=== PATIENT | male | born 1960 | race Caucasian/White ===

== ENCOUNTER 2024-03-06 11:56 | Inpatient (IN) | payer MEDICARE, OTHER ==
--- NOTE | 2024-03-06 12:43 | ED ---
General Adult HPI - General Chief complaint: Shortness of Breath Stated complaint: Dizziness Time Seen by Provider: 03/06/24 12:09 Source: patient, EMS, RN notes reviewed, old records reviewed Mode of arrival: EMS Limitations: no limitations - History of Present Illness Initial comments: Is 63-year-old male who presents to the emergency department stating that he is at [facility] for the last 7 days for drinking. Patient states he got up today and he felt very dizzy he did not fall down but he did sit down hard and hit his tailbone. Patient denies any pain there currently. Patient denies hitting his head. Patient has any neck pain. Patient has numbness weakness. Patient states he has had a cough but has been dry so far. Patient states he also has been a little bit short of breath. Patient states it is quite a few sick contacts at [facility]. [facility] did send in. - Related Data Allergies Allergy/AdvReac Type Severity Reaction Status Date / Time No Known Allergies Allergy Verified 03/06/24 12:01 Review of Systems ROS Statement: Those systems with pertinent positive or pertinent negative responses have been documented in the HPI. ROS Other: All systems not noted in ROS Statement are negative. Past Medical History Past Medical History: Deep Vein Thrombosis (DVT) Past Surgical History: Cholecystectomy Smoking Status: Current every day smoker Past Alcohol Use History: Abuse, Daily, Heavy Past Drug Use History: Cocaine General Exam - General Exam Comments Initial Comments: GENERAL: Patient is well-developed and well-nourished. Patient is nontoxic and well- hydrated and is in mild distress. Normal temperature and the patient's temp was 101.3 ENT: Neck is soft and supple. No significant lymphadenopathy is noted. Oropharynx is clear. Moist mucous membranes. Neck has full range of motion without eliciting any pain. EYES: The sclera were anicteric and conjunctiva were pink and moist. Extraocular movements were intact and pupils were equal round and reactive to light. Eyelids were unremarkable. PULMONARY: Crackles in the right base CARDIOVASCULAR: There is a regular rate and rhythm without any murmurs gallops or rubs. ABDOMEN: Soft and nontender with normal bowel sounds. SKIN: Skin is clear with no lesions or rashes and otherwise unremarkable. NEUROLOGIC: Patient is alert and oriented x3. Cranial nerves II through XII are grossly intact. Motor and sensory are also intact. Normal speech, volume and content. Symmetrical smile. MUSCULOSKELETAL: Normal extremities with adequate strength and full range of motion. LYMPHATICS: No significant lymphadenopathy is noted PSYCHIATRIC: Normal psychiatric evaluation. Limitations: no limitations Course Vital Signs 03/06/24 03/06/24 03/06/24 12:01 12:27 14:18 Temperature 99.6 F 101.2 F H 98.8 F Pulse Rate 89 Respiratory 20 Rate Blood Pressure 98/58 O2 Sat by Pulse 91 L Oximetry Medical Decision Making - Medical Decision Making I interpreted the EKG myself. EKG shows a sinus rhythm at 65 bpm TN interval 158 QRS is 86 QT interval 387 QTc is 399. Patient's EKG shows no ST segment elevation or depression. Was pt. sent in by a medical professional or institution (, PA, COLLECTIONS OFFICER, urgent care, hospital, or usp...) When possible be specific @ -No Did you speak to anyone other than the patient for history (EMS, parent, family, police, friend...)? What history was obtained from this source @ -No Did you review nursing and triage notes (agree or disagree)? Why? @ -I reviewed and agree with nursing and triage notes Were old charts reviewed (outside hosp., previous admission, EMS record, old EKG, old radiological studies, urgent care reports/EKG's, usp records)? Report findings @ -No old charts were reviewed Differential Diagnosis? @ -Differential Fever: Pneumonia, viral URI, endocarditis, myocarditis, pericarditis, otitis, sinusitis, peritonsillar Abscess, retropharyngeal Abscess, epiglottitis, peritonitis, appendicitis, Em cystitis, diverticulitis, hepatitis, colitis, UTI, PID, TOA, pyelonephritis, prostatitis, epididymitis, meningitis, encephalitis, pulmonary embolism, CVA, thyroid storm, pancreatitis, adrenal cr sebastien, cavernous sinus thrombosis, this is not meant to be an all-inclusive list. EKG interpreted by me (3pts min.). @ -As above X-rays interpreted by me (1pt min.). @ -Chest x-ray shows bilateral infiltrate. CT interpreted by me (1pt min.). @ -None done U/S interpreted by me (1pt. min.). @ -None done What testing was considered but not performed or refused? (CT, X-rays, U/S, labs)? Why? @ -None What meds were considered but not given or refused? Why? @ -None Did you discuss the management of the patient with other professionals (professionals i.e. , PA, COLLECTIONS OFFICER, lab, RT, psych nurse, social services coordinator, hydrologic engineer, teacher, surface to air weapons officer, social work case manager)? Give summary @ -Spoke with [facility] emergency [facility] physicians agreed to admit the patient admit the patient remaining orders Was smoking cessation discussed for >3mins.? @ -No Was critical care preformed (if so, how long)? @ -No Were there social determinants of health that impacted care today? How? (Homelessness, low income, unemployed, alcoholism, drug addiction, transportation, low edu. Level, literacy, decrease access to med. care, skilled nursing, rehab)? @ -No Was there de-escalation of care discussed even if they declined (Discuss DNR or withdrawal of care, Hospice)? DNR status @ -No What co-morbidities impacted this encounter? (DM, HTN, Smoking, COPD, CAD, Ca ncer, CVA, ARF, Chemo, Hep., AIDS, mental health diagnosis, sleep apnea, morbid obesity)? @ -None Was patient admitted / discharged? Hospital course, mention meds given and route, prescriptions, significant lab abnormalities, going to OR and other pertinent info. @ -Patient was given antibiotics on arrival because of his fever and suspected pneumonia. X-ray confirmed that. Patient will be admitted to [facility] emergency department physicians. Undiagnosed new problem with uncertain prognosis? @ -No Drug Therapy requiring intensive monitoring for toxicity (Heparin, Nitro, Insulin, Cardizem)? @ -No Were any procedures done? @ -No Diagnosis/symptom? @ -pneumonia Acute, or Chronic, or Acute on Chronic? @ -Acute Uncomplicated (without systemic symptoms) or Complicated (systemic symptoms)? @ -Complicated Side effects of treatment? @ -No Exacerbation, Progression, or Severe Exacerbation? @ -No Poses a threat to life or bodily function? How? (Chest pain, USA, SC, pneumonia, PE, COPD, DKA, ARF, appy, cholecystitis, CVA, Diverticulitis, Homicidal, Suicidal, threat to staff... and all critical care pts) @ -Yes this can lead to sepsis and endorgan dysfunction - Lab Data Result diagrams: 03/06/24 13:04 03/06/24 13:04 Lab Results 03/06/24 03/06/24 03/06/24 Range/Units 13:04 13:04 13:04 WBC 16.6 H (3.8-10.6) k/uL RBC 4.18 L (4.30-5.90) m/uL Hgb 11.8 L (13.0-17.5) gm/dL Hct 37.7 L (39.0-53.0) % MCV 90.2 (80.0-100.0) fL MCH 28.3 (25.0-35.0) pg MCHC 31.4 (31.0-37.0) g/dL RDW 16.9 H (11.5-15.5) % Plt Count 206 (150-450) k/uL MPV 8.6 Neutrophils % 81 % Lymphocytes % 8 % Monocytes % 7 % Eosinophils % 0 % Basophils % 1 % Neutrophils # 13.4 H (1.3-7.7) k/uL Lymphocytes # 1.3 (1.0-4.8) k/uL Monocytes # 1.1 H (0-1.0) k/uL Eosinophils # 0.0 (0-0.7) k/uL Basophils # 0.1 (0-0.2) k/uL Hypochromasia Slight Anisocytosis Slight Sodium 135 L (137-145) mmol/L Potassium 5.5 H (3.5-5.1) mmol/L Chloride 106 (98-107) mmol/L Carbon Dioxide 27 (22-30) mmol/L Anion Gap 2 mmol/L BUN 31 H (9-20) mg/dL Creatinine 1.45 H (0.66-1.25) mg/dL Est GFR (CKD-EPI)AfAm 58 (>60 ml/min/1.73 sqM) Est GFR (CKD-EPI)NonAf 50 (>60 ml/min/1.73 sqM) Glucose 92 (74-99) mg/dL Plasma Lactic Acid Leonel 0.8 (0.7-2.0) mmol/L Calcium 8.5 (8.4-10.2) mg/dL Total Bilirubin 0.7 (0.2-1.3) mg/dL AST 22 (17-59) U/L ALT 17 (4-49) U/L Alkaline Phosphatase 45 (38-126) U/L Total Protein 6.0 L (6.3-8.2) g/dL Albumin 3.5 (3.5-5.0) g/dL Influenza Type A (PCR) (Not Detectd) Influenza Type B (PCR) (Not Detectd) RSV (PCR) (Not Detectd) SARS-CoV-2 (PCR) (Not Detectd) 03/06/24 Range/Units 13:04 WBC (3.8-10.6) k/uL RBC (4.30-5.90) m/uL Hgb (13.0-17.5) gm/dL Hct (39.0-53.0) % MCV (80.0-100.0) fL MCH (25.0-35.0) pg MCHC (31.0-37.0) g/dL RDW (11.5-15.5) % Plt Count (150-450) k/uL MPV Neutrophils % % Lymphocytes % % Monocytes % % Eosinophils % % Basophils % % Neutrophils # (1.3-7.7) k/uL Lymphocytes # (1.0-4.8) k/uL Monocytes # (0-1.0) k/uL Eosinophils # (0-0.7) k/uL Basophils # (0-0.2) k/uL Hypochromasia Anisocytosis Sodium (137-145) mmol/L Potassium (3.5-5.1) mmol/L Chloride (98-107) mmol/L Carbon Dioxide (22-30) mmol/L Anion Gap mmol/L BUN (9-20) mg/dL Creatinine (0.66-1.25) mg/dL Est GFR (CKD-EPI)AfAm (>60 ml/min/1.73 sqM) Est GFR (CKD-EPI)NonAf (>60 ml/min/1.73 sqM) Glucose (74-99) mg/dL Plasma Lactic Acid Leonel (0.7-2.0) mmol/L Calcium (8.4-10.2) mg/dL Total Bilirubin (0.2-1.3) mg/dL AST (17-59) U/L ALT (4-49) U/L Alkaline Phosphatase (38-126) U/L Total Protein (6.3-8.2) g/dL Albumin (3.5-5.0) g/dL Influenza Type A (PCR) Not Detected (Not Detectd) Influenza Type B (PCR) Not Detected (Not Detectd) RSV (PCR) Not Detected (Not Detectd) SARS-CoV-2 (PCR) Not Detected (Not Detectd) Disposition Clinical Impression: Pneumonia Disposition: ADMITTED IP TO THIS HOSP Referrals: Nonstaff,Physician [Primary Care Provider] - 1-2 days Time of Disposition: 15:27
[2024-03-06] MEDS: ACETAMINOPHEN TAB 500 MG TAB PO STA (13:10)
[2024-03-06] MEDS: SODIUM CHLORIDE 0.9% 500 ML 500 ML IV SCH (13:10)
[2024-03-06] MEDS: cefTRIAXone IN SWFI 1,000 MG/10 ML SYRINGE IVP STA (13:11)
[2024-03-06] MEDS: IBUPROFEN 600 MG TAB PO STA (13:11)
[2024-03-06 13:22] LABS: Anisocytosis Slight; Basophils # (A) 0.1 k/uL (0-0.2); Basophils % (A) 1 %; Eosinophils % (A) 0 %; HCT 37.7 % (39.0-53.0); HGB 11.8 gm/dL (13.0-17.5); Hypochromasia Slight; Lymphocytes # (A) 1.3 k/uL (1.0-4.8); Lymphocytes % (A) 8 %; MCH 28.3 pg (25.0-35.0); MCHC 31.4 g/dL (31.0-37.0); MCV 90.2 fL (80.0-100.0); Mean Platelet Volume 8.6; Monocytes # (A) 1.1 k/uL (0-1.0); Monocytes % (A) 7 %; Neutrophils # (A) 13.4 k/uL (1.3-7.7); Neutrophils % (A) 81 %; Platelet Count 206 k/uL (150-450); RBC 4.18 m/uL (4.30-5.90); RDW 16.9 % (11.5-15.5); WBC 16.6 k/uL (3.8-10.6)
--- NOTE | 2024-03-06 13:24 | XR ---
EXAMINATION TYPE: XR chest 2V DATE OF EXAM: 03/06/2024 1:19 PM COMPARISON: Chest radiographs from TECHNIQUE: XR chest 2V Frontal and lateral views of the chest. CLINICAL INDICATION:Male, 63 years old with history of Fever; FINDINGS: Lungs/Pleura: No pleural effusion or pneumothorax. Patchy bilateral perihilar opacities. Heart/mediastinum: Cardiomediastinal silhouette is prominent in size. Musculoskeletal: No acute osseous pathology. IMPRESSION: Patchy bilateral perihilar opacities which may represent pneumonia and/or pulmonary vascular congesti on. [facility], , 03/06/2024 1:22 PM
[2024-03-06 13:51] LABS: ALT 17 U/L (4-49); AST 22 U/L (17-59); African American GFR (CKD) 58 (>60 ml/min/1.73 sqM); Albumin 3.5 g/dL (3.5-5.0); Alkaline Phosphatase 45 U/L (38-126); Anion Gap 2 mmol/L; Blood Urea Nitrogen 31 mg/dL (9-20); Calcium 8.5 mg/dL (8.4-10.2); Carbon Dioxide 27 mmol/L (22-30); Chloride 106 mmol/L (98-107); Glucose 92 mg/dL (74-99); Non-African American GFR(CKD) 50 (>60 ml/min/1.73 sqM); Potassium 5.5 mmol/L (3.5-5.1); Sodium 135 mmol/L (137-145); Total Bilirubin 0.7 mg/dL (0.2-1.3)
[2024-03-06] MEDS ORDERED: PNEUMONIA PROTOCOL UTILIZED 1 EACH MISC PO PRN (15:28)
[2024-03-06] MEDS ORDERED: ALBUTEROL NEBULIZED 2.5 MG/3 ML INHALATION PRN ×2 (15:28→16:30)
[2024-03-06] MEDS ORDERED: CALCIUM CARB-VIT D 500 MG-5 MCG TAB PO PRN (16:30)
[2024-03-06] MEDS: AZITHROMYCIN 500 MG in SODIUM CHLORIDE 0.9% 250 ML IVPB STA (16:31)
[2024-03-06] MEDS ORDERED: NALOXONE 0.4 MG/ML 1 ML VIAL IV PRN (17:24)
--- NOTE | 2024-03-06 17:27 | P.HPIM ---
History of Present Illness H&P Date: 03/06/24 Chief Complaint: Hypoxia Rafael is a 63-year-old male with past medical history of cocaine use disorder, alcohol use disorder, tobacco use and history of DVT The patient is currently at [facility]. He reports that his tentative discharge date is later in March. He reports that he had relapsed and currently suffers from cocaine use disorder, alcohol disorder and tobacco use. He reports he still use tobacco with his prior cigarette earlier today. It was noted that he was at [facility] and he had felt very dizzy. He had his vital signs checked and it was noted that he was hypoxic. It appears that he was 86% on room air. He was then transferred to the hospital for further evaluation. When he presented to hospital he was 91% on 2 L of oxygen. He was noted to be febrile with a Tmax of 101.2. Respiratory rate was 20. Chest x-ray had revealed patchy opacities bilaterally. The patient was started on ceftriaxone azithromycin was admitted for further management When speaking to the patient he does report that he does use tobacco however has not ever been formally been diagnosed with COPD. He reports he still uses tobacco. Review of Systems Constitutional: Reports as per HPI Past Medical History Past Medical History: Deep Vein Thrombosis (DVT) Past Surgical History: Cholecystectomy Smoking Status: Current every day smoker Past Alcohol Use History: Abuse, Daily, Heavy Past Drug Use History: Cocaine Medications and Allergies Home Medications Medication Instructions Recorded Confirmed Type ARIPiprazole [Abilify] 10 mg PO DAILY 03/06/24 03/06/24 History Acetaminophen Tab [Tylenol] 650 mg PO Q4H PRN 03/06/24 03/06/24 History Albuterol Nebulized [Ventolin 2.5 mg INHALATION RT-Q6H PRN 03/06/24 03/06/24 History Nebulized] Apixaban [Eliquis] 5 mg PO BID 03/06/24 03/06/24 History Atorvastatin [Lipitor] 10 mg PO HS 03/06/24 03/06/24 History Calcium Phos/D3/Magnesium/Zinc 1 tab PO TID PRN 03/06/24 03/06/24 History [[id number]-Ujvm-Vitamin D3] Chlorpheniramine Maleate 4 mg PO Q4H PRN 03/06/24 03/06/24 History [Chlor-Trimeton] DULoxetine HCL [Cymbalta] 60 mg PO BID 03/06/24 03/06/24 History Folic Acid 1 mg PO DAILY 03/06/24 03/06/24 History Loperamide [Imodium] 4 mg PO QID PRN 03/06/24 03/06/24 History Melatonin 10 mg PO HS 03/06/24 03/06/24 History Multivitamins, Thera [Multivitamin 1 tab PO DAILY 03/06/24 03/06/24 History (formulary)] Pregabalin [Lyrica] 150 mg PO TID 03/06/24 03/06/24 History Tamsulosin HCl [Flomax] 0.4 mg PO DAILY 03/06/24 03/06/24 History Thiamine [Vitamin B-1] 100 mg PO DAILY 03/06/24 03/06/24 History allopurinoL 100 mg PO DAILY 03/06/24 03/06/24 History cloNIDine HCL [Catapres] 0.1 - 0.3 mg PO Q4H PRN 03/06/24 03/06/24 History ondansetron HCL [Zofran] 8 mg PO Q6H PRN 03/06/24 03/06/24 History traZODone HCL [Desyrel] 50 - 150 mg PO HS PRN 03/06/24 03/06/24 History Allergies Allergy/AdvReac Type Severity Reaction Status Date / Time No Known Allergies Allergy Verified 03/06/24 15:22 Physical Exam Vitals: Vital Signs Temp Pulse Resp BP Pulse Ox 03/06/24 14:18 98.8 F 03/06/24 12:27 101.2 F H 03/06/24 12:01 99.6 F 89 20 98/58 91 L Intake and Output 03/06/24 03/06/24 03/06/24 06:59 14:59 22:59 Other: Weight 72.575 kg Results CBC & Chem 7: 03/06/24 13:04 03/06/24 13:04 Labs: Abnormal Lab Results - Last 24 Hours (Table) 03/06/24 03/06/24 Range/Units 13:04 13:04 WBC 16.6 H (3.8-10.6) k/uL RBC 4.18 L (4.30-5.90) m/uL Hgb 11.8 L (13.0-17.5) gm/dL Hct 37.7 L (39.0-53.0) % RDW 16.9 H (11.5-15.5) % Neutrophils # 13.4 H (1.3-7.7) k/uL Monocytes # 1.1 H (0-1.0) k/uL Sodium 135 L (137-145) mmol/L Potassium 5.5 H (3.5-5.1) mmol/L BUN 31 H (9-20) mg/dL Creatinine 1.45 H (0.66-1.25) mg/dL Total Protein 6.0 L (6.3-8.2) g/dL Assessment and Plan Assessment: #) Sepsis, POA with leukocytosis and tachycaridia 2/2 to bacterial CAP with cxr showing multifocal pna. no prior antibx usage but does have mrsa risk factors. continue iv ceftriaxone/po azithromycin. check mrsa nares. tylenol prn for fevers. check sputum cx #) Acute hypoxic respiraotry failure req nc- continue supplemental nc as tolerates #) Tobacco use- nicotine patch while inpatient. tobacco cessasation recommended #) Hyperkalemia, ?errornous. recheck K. #) Cocaine use dz- continued cocaine use cessation #) etoh use dz- continued etoh cessation. high dose thiamine #) hx of dvt- continue eliquis 5 mg bid #) mood disorder not otherwise specified- continue abilify 10 mg daily #) Neuropathy- continue lyrica 150 mg TID #) bph- continue tamsulosin 0.4 mg daily dispo: [facility], anticipate discharge 48-72 hours Time with Patient: Greater than 30
[2024-03-06] MEDS: BUMETANIDE 0.25 MG/ML 4 ML VIAL IVP STA (17:43)
[2024-03-06] MEDS: LACTATED RINGERS 1,000 ML IV ONE (18:16)
[2024-03-06] MEDS: NICOTINE 21MG/24HR PATCH TRANSDERM SCH (18:16)
[2024-03-06 18:33] LABS: Appearance,Urine Clear (Clear); Bilirubin,Urine Negative (Negative); Blood,Urine Negative (Negative); Color,Urine Colorless; Glucose,Urine (UA) Negative (Negative); Ketones,Urine Negative (Negative); Leukocyte Esterase,Urine Negative (Negative); Nitrite,Urine Negative (Negative); PH, Urine 6.5 (5.0-8.0); Protein,Urine Negative (Negative); Urobilinogen,Urine <2.0 mg/dL (<2.0)
[2024-03-06] MEDS ORDERED: ACETAMINOPHEN TAB 325 MG TAB PO PRN (19:00)
[2024-03-06] MEDS: DULoxetine HCL 60 MG CAPSULE.DR PO SCH (22:30)
[2024-03-06] MEDS: ATORVASTATIN 10 MG TAB PO SCH (22:30)
[2024-03-06] MEDS: APIXABAN 5 MG TAB PO SCH (22:30)
[2024-03-06] MEDS: PREGABALIN 75 MG CAP PO SCH (22:30)
[2024-03-06] MEDS: MELATONIN 5 MG TABLET PO SCH (22:30)
[2024-03-06] MEDS: traZODone HCL 50 MG TAB PO PRN (22:51)
[2024-03-07 05:07] LABS: Blood Urea Nitrogen 28.8 mg/dL (9.0-27.0); Calcium 7.8 mg/dL (8.7-10.3); Carbon Dioxide 22.8 mmol/L (21.6-31.8); Chloride 110 mmol/L (96-109); Glucose 88 mg/dL (70-110); Potassium 5.3 mmol/L (3.5-5.5); Sodium 140 mmol/L (135-145)
--- NOTE | 2024-03-07 07:30 | XR ---
2 view chest HISTORY: Pneumonia. COMPARISON: 03/06/2024 TECHNIQUE: PA and lateral views chest obtained. FINDINGS: The lungs are clear of consolidative, interstitial or masslike opacity. There is no pleural effusion, pleural thickening or pneumothorax. The heart, pulmonary vasculature, mediastinum and diego are within normal limits. The osseous structures and soft tissues of the thorax are intact. IMPRESSION: No significant abnormality. No acute cardiopulmonary disease. [facility], , 03/07/2024 7:28 AM
[2024-03-07] MEDS: TAMSULOSIN 0.4 MG CAP.ER.24H PO SCH (09:38)
[2024-03-07] MEDS: THIAMINE 100 MG TAB PO SCH (09:38)
[2024-03-07] MEDS: MULTIVITAMINS, THERA 1 EACH TAB PO SCH (09:38)
[2024-03-07] MEDS: ARIPiprazole 10 MG TAB PO SCH (09:38)
[2024-03-07] MEDS: FOLIC ACID 1 MG TAB PO SCH (09:38)
[2024-03-07 10:00] LABS: Basophils # (A) 0.08 X 10*3/uL (0.00-0.10); Basophils % (A) 0.7 %; Eosinophils # (A) 0.15 X 10*3/uL (0.04-0.35); Eosinophils % (A) 1.3 %; HGB 11.1 g/dL (13.0-17.0); Lymphocytes # (A) 2.04 X 10*3/uL (0.90-5.00); MCH 27.9 pg (27.0-32.0); Mean Platelet Volume 12.5 FL (9.5-12.2); Monocytes # (A) 1.45 X 10*3/uL (0.20-1.00); Monocytes % (A) 12.1 %; NRBC Per 100 WBC 0 X 10*3/uL (0.00-0.01); Neutrophils # (A) 8.23 X 10*3/uL (1.80-7.70); Neutrophils % (A) 68.5 %; Platelet Count 214 X 10*3/uL (140-440); RBC 3.98 X 10*6/uL (4.40-5.60)
[2024-03-07 10:26] LABS: BUN/Creat Ratio 19.86 Ratio (12.00-20.00); Blood Urea Nitrogen 27.8 mg/dL (9.0-27.0); Calcium 8.1 mg/dL (8.7-10.3); Carbon Dioxide 21.4 mmol/L (21.6-31.8); Chloride 110 mmol/L (96-109); Glucose 83 mg/dL (70-110); Potassium 5.4 mmol/L (3.5-5.5); Sodium 142 mmol/L (135-145)
[2024-03-07] MEDS: AZITHROMYCIN 500 MG TAB PO SCH (10:30)
[2024-03-07] MEDS ORDERED: IPRATROPIUM-ALBUTEROL 3 ML NEB INHALATION PRN (11:53)
--- NOTE | 2024-03-07 11:55 | P.PN ---
Subjective Progress Note Date: 03/07/24 Principal diagnosis: States 63-year-old male who presented from [place] with hypoxia. His chest x-ray revealed patchy opacities bilaterally and he was treated for bacterial co mmunity-acquired pneumonia. 03/07: The patient reported rigors overnight. No fevers were documented or reported. His leukocytosis has improved and his white blood cell count is 12.0 currently. Objective - Vital Signs Vital signs: Vital Signs Temp 97.8 F 03/07/24 07:12 Pulse 66 03/07/24 09:40 Resp 19 03/07/24 09:40 BP 121/79 03/07/24 07:12 Pulse Ox 96 03/07/24 09:40 FiO2 Intake & Output 03/06/24 03/07/24 03/07/24 18:59 06:59 18:59 Intake Total 1557 Balance 1557 Weight 72.575 kg 72.575 kg Intake: Oral 1557 Other: Voiding Method Toilet Toilet # Voids 2 2 - Exam General: Male, appears stated age, pleasant Derm: warm, dry Head: atraumatic, normocephalic, symmetric Eyes: EOMI, no lid lag, anicteric sclera, pupils equal round reactive to light ENT: Nose and ears atraumatic, no thrush, no pharyngeal erythema Neck: No thyromegaly, no cervical lymphadenopathy, trachea midline, supple Mouth: no lip lesion, mucus membranes moist Cardiovascular: S1S2 reg, no murmur, positive posterior tibial pulse bilateral, no edema, capillary refill less than 2 seconds Lungs: clear to ascultation bilateral on supplemental oxygen Abdominal: soft, nontender to palpation, no guarding, no appreciable organomegaly, normal bowel sounds Ext: no gross muscle atrophy, muscle strength muscle strength 5 out of 5 in all 4 extremities, no contractures Neuro: Moving all extremity spontaneously Psych: Calm and cooperative - Labs CBC & Chem 7: 03/07/24 03:59 03/07/24 03:59 Labs: Abnormal Lab Results - Last 24 Hours (Table) 03/06/24 03/06/24 03/06/24 Range/Units 13:04 13:04 16:44 WBC 16.6 H (3.8-10.6) k/uL RBC 4.18 L (4.30-5.90) m/uL Hgb 11.8 L (13.0-17.5) gm/dL Hct 37.7 L (39.0-53.0) % MCHC (32.0-37.0) g/dL RDW 16.9 H (11.5-15.5) % MPV (9.5-12.2) FL Immature Gran # (0.00-0.04) X 10*3/uL Neutrophils # 13.4 H (1.3-7.7) k/uL Monocytes # 1.1 H (0-1.0) k/uL Sodium 135 L (137-145) mmol/L Potassium 5.5 H (3.5-5.1) mmol/L Chloride 110 H (96-109) mmol/L Carbon Dioxide (21.6-31.8) mmol/L BUN 31 H 28.8 H (9-20) mg/dL Creatinine 1.45 H (0.66-1.25) mg/dL Est GFR (CKD-EPI) 51 L (>=60) Calcium 7.8 L (8.7-10.3) mg/dL C-Reactive Protein 4.70 H (0.00-0.80) mg/dL Total Protein 6.0 L (6.3-8.2) g/dL 03/07/24 03/07/24 Range/Units 03:59 03:59 WBC 12.00 H (3.8-10.6) k/uL RBC 3.98 L (4.30-5.90) m/uL Hgb 11.1 L (13.0-17.5) gm/dL Hct 37.0 L (39.0-53.0) % MCHC 30.0 L (32.0-37.0) g/dL RDW 18.0 H (11.5-15.5) % MPV 12.5 H (9.5-12.2) FL Immature Gran # 0.05 H (0.00-0.04) X 10*3/uL Neutrophils # 8.23 H (1.3-7.7) k/uL Monocytes # 1.45 H (0-1.0) k/uL Sodium (137-145) mmol/L Potassium (3.5-5.1) mmol/L Chloride 110 H (96-109) mmol/L Carbon Dioxide 21.4 L (21.6-31.8) mmol/L BUN 27.8 H (9-20) mg/dL Creatinine (0.66-1.25) mg/dL Est GFR (CKD-EPI) 56 L (>=60) Calcium 8.1 L (8.7-10.3) mg/dL C-Reactive Protein (0.00-0.80) mg/dL Total Protein (6.3-8.2) g/dL Assessment and Plan Assessment: #) Sepsis, POA with leukocytosis and tachycaridia 2/2 to bacterial CAP with cxr showing multifocal pna. no prior antibx usage but does have mrsa risk factors. Awaiting MRSA nares. Continue IV ceftriaxone and azithromycin. Awaiting sputum culture results. #) Acute hypoxic respiraotry failure req nc- continue supplemental nc as tolerates and wean down as tolerates #) Tobacco use- nicotine patch while inpatient. tobacco cessasation recommended #) Hyperkalemia, creatinine is noted to be 1.4 with no prior kidney function on file. Provide another bolus of IV fluid and provide a dose of Lokelma. Recheck BMP tomorrow morning #) Crack Cocaine use dz- continued cocaine use cessation. Reported that he smoked crack cocaine previously #) etoh use dz- continued etoh cessation. high dose thiamine #) hx of dvt- continue eliquis 5 mg bid #) mood disorder not otherwise specified- continue abilify 10 mg daily #) Neuropathy- continue lyrica 150 mg TID #) bph- continue tamsulosin 0.4 mg daily dispo: [facility], anticipate discharge on March 09 ability to be weaned off supplemental oxygen and stable hemodynamics Time with Patient: Greater than 30
[2024-03-07] MEDS: LACTATED RINGERS 1,000 ML IV ONE (14:56)
[2024-03-07] MEDS: SODIUM ZIRCONIUM CYCLOSILICATE 10 GM PACKET PO ONE (14:56)
--- NOTE | 2024-03-08 09:57 | P.PN ---
Subjective Progress Note Date: 03/07/24 Principal diagnosis: States 63-year-old male who presented from [place] with hypoxia. His chest x-ray revealed patchy opacities bilaterally and he was treated for bacterial community-acquired pneumonia. 03/07: The patient reported rigors overnight. No fevers were documented or reported. His leukocytosis has improved and his white blood cell count is 12.0 currently. - Exam General: Male, appears stated age, pleasant Derm: warm, dry Head: atraumatic, normocephalic, symmetric Eyes: EOMI, no lid lag, anicteric sclera, pupils equal round reactive to light ENT: Nose and ears atraumatic, no thrush, no pharyngeal erythema Neck: No thyromegaly, no cervical lymphadenopathy, trachea midline, supple Mouth: no lip lesion, mucus membranes moist Cardiovascular: S1S2 reg, no murmur, positive posterior tibial pulse bilateral, no edema, capillary refill less than 2 seconds Lungs: clear to ascultation bilateral on supplemental oxygen Abdominal: soft, nontender to palpation, no guarding, no appreciable organomegaly, normal bowel sounds Ext: no gross muscle atrophy, muscle strength muscle strength 5 out of 5 in all 4 extremities, no contractures Neuro: Moving all extremity spontaneously Psych: Calm and cooperative Objective - Vital Signs Vital signs: Vital Signs Temp 98.1 F 03/08/24 08:05 Pulse 58 L 03/08/24 08:05 Resp 18 03/08/24 08:05 BP 135/84 03/08/24 08:05 Pulse Ox 95 03/08/24 08:05 FiO2 Intake & Output 03/07/24 03/08/24 03/08/24 18:59 06:59 18:59 Intake Total 1797 Balance 1797 Intake: Oral 1797 Other: Voiding Method Toilet Toilet # Voids 3 2 - Labs CBC & Chem 7: 03/07/24 03:59 03/07/24 03:59 Labs: Abnormal Lab Results - Last 24 Hours (Table) 03/07/24 03/07/24 Range/Units 03:59 03:59 WBC 12.00 H (4.50-10.00) X 10*3/uL RBC 3.98 L (4.40-5.60) X 10*6/uL Hgb 11.1 L (13.0-17.0) g/dL Hct 37.0 L (39.6-50.0) % MCHC 30.0 L (32.0-37.0) g/dL RDW 18.0 H (11.5-14.5) % MPV 12.5 H (9.5-12.2) FL Immature Gran # 0.05 H (0.00-0.04) X 10*3/uL Neutrophils # 8.23 H (1.80-7.70) X 10*3/uL Monocytes # 1.45 H (0.20-1.00) X 10*3/uL Chloride 110 H (96-109) mmol/L Carbon Dioxide 21.4 L (21.6-31.8) mmol/L BUN 27.8 H (9.0-27.0) mg/dL Est GFR (CKD-EPI) 56 L (>=60) Calcium 8.1 L (8.7-10.3) mg/dL Microbiology - Last 24 Hours (Table) 03/06/24 18:22 Gram Stain - Preliminary Sputum 03/06/24 13:00 Blood Culture - Preliminary Blood 03/06/24 12:45 Blood Culture - Preliminary Blood Assessment and Plan Plan: #) Sepsis, POA with leukocytosis and tachycaridia 2/2 to bacterial CAP with cxr showing multifocal pna. no prior antibx usage but does have mrsa risk factors. Awaiting MRSA nares. Continue IV ceftriaxone and azithromycin. Awaiting sputum culture results. #) Acute hypoxic respiraotry failure req nc- continue supplemental nc as tolerates and wean down as tolerates #) Tobacco use- nicotine patch while inpatient. tobacco cessasation recommended #) Hyperkalemia, creatinine is noted to be 1.4 with no prior kidney function on file. Provide another bolus of IV fluid and provide a dose of Lokelma. Recheck BMP tomorrow morning #) Crack Cocaine use dz- continued cocaine use cessation. Reported that he smoked crack cocaine previously #) etoh use dz- continued etoh cessation. high dose thiamine #) hx of dvt- continue eliquis 5 mg bid #) mood disorder not otherwise specified- continue abilify 10 mg daily #) Neuropathy- continue lyrica 150 mg TID #) bph- continue tamsulosin 0.4 mg daily 03/08 Patient seen and examined at bedside No acute overnight events Patient seems to be doing well overall however he states that he used to get breathing treatments in the past which have helped him when he has had exacerb ations of COPD/previous pneumonias Will add DuoNebs every 4 hours as needed wheezing Wean oxygen as tolerated Continue Rocephin azithromycin Plan to switch to oral regimen upon discharge Continue to monitor for next 24 to 48 hours Will need walking O2 test prior to discharge to assess need for oxygen dispo: jacques, anticipate discharge on March 09 ability to be weaned off supplemental oxygen and stable hemodynamics Time with Patient: Greater than 30
[2024-03-08 10:57] LABS: ALT 14 U/L (10-49); AST 19 U/L (14-35); Albumin 3.4 g/dL (3.8-4.9); Albumin/Globulin Ratio 1.62 Ratio (1.60-3.17); Alkaline Phosphatase 46 U/L (41-126); BUN/Creat Ratio 18.08 Ratio (12.00-20.00); Blood Urea Nitrogen 21.7 mg/dL (9.0-27.0); Calcium 8.4 mg/dL (8.7-10.3); Carbon Dioxide 24.4 mmol/L (21.6-31.8); Chloride 107 mmol/L (96-109); Globulin 2.1 g/dL (1.6-3.3); Glucose 85 mg/dL (70-110); Sodium 139 mmol/L (135-145); Total Bilirubin 0.3 mg/dL (0.3-1.2); Total Protein 5.5 g/dL (6.2-8.2)
[2024-03-08 16:00] LABS: Basophils % (A) 1.2 %; Eosinophils # (A) 0.22 X 10*3/uL (0.04-0.35); Eosinophils % (A) 2.7 %; HCT 36.9 % (39.6-50.0); HGB 11.6 g/dL (13.0-17.0); Lymphocytes # (A) 1.78 X 10*3/uL (0.90-5.00); Lymphocytes % (A) 22.1 %; MCH 28.3 pg (27.0-32.0); MCHC 31.4 g/dL (32.0-37.0); Mean Platelet Volume 12.2 FL (9.5-12.2); Monocytes # (A) 1.17 X 10*3/uL (0.20-1.00); Monocytes % (A) 14.5 %; NRBC Per 100 WBC 0 X 10*3/uL (0.00-0.01); Neutrophils # (A) 4.79 X 10*3/uL (1.80-7.70); Neutrophils % (A) 59.4 %; Platelet Count 222 X 10*3/uL (140-440); RDW 17.8 % (11.5-14.5); WBC 8.07 X 10*3/uL (4.50-10.00)
[2024-03-09 07:52] VITALS: TEMP 98
[2024-03-09 09:16] VITALS: RESP 17
[2024-03-09 09:57] LABS: African American GFR (CKD) 61 (>60 ml/min/1.73 sqM); Anion Gap 6 mmol/L; Blood Urea Nitrogen 24 mg/dL (9-20); Calcium 8.6 mg/dL (8.4-10.2); Carbon Dioxide 25 mmol/L (22-30); Chloride 107 mmol/L (98-107); Glucose 122 mg/dL (74-99); Non-African American GFR(CKD) 53 (>60 ml/min/1.73 sqM); Sodium 138 mmol/L (137-145)
--- NOTE | 2024-03-09 14:13 | P.DS ---
Providers Date of admission: 03/06/24 15:30 Attending physician: Tiago Mcmahan MD Primary care physician: Physician Nonstaff Hospital Course: Discharge Diagnosis: Sepsis secondary to community-acquired multifocal bacterial pneumonia Acute hypoxic respiratory failure secondary to above Hospital Course: 63-year-old male with past medical history of ethanol use disorder crack cocaine use disorder, history of DVT on Eliquis, mood disorder, neuropathy, BPH, tobacco use disorder, who presented from [facility] with hypoxia, chest x-ray showed patchy bilateral opacities and he was admitted for treatment of bacterial community-acquired pneumonia. Patient initially required supplemental oxygen and was successfully weaned off, he is walking pulse ox was 95%, patient is discharged back to [facility] on Augmentin and azithromycin to complete 7 days of treatment. Patient seen and examined at bedside. He feels back at his baseline, ready to be discharged, he is Is significantly better Vital signs reviewed and stable. General: [nontoxic], [no distress], [appears at stated age] Derm: [warm], [dry] Head: [atraumatic], [normocephalic], [symmetric] Eyes: [EOMI], [no lid lag], [anicteric sclera] Mouth: [no lip lesion], [mucus membranes moist] Cardiovascular: [S1S2 reg], [no murmur] Lungs: [CTA bilateral], [no rhonchi, no rales] , [no accessory muscle use] Abdominal: [soft], [ nontender to palpation], [no guarding], [no appreciable org anomegaly] Ext: [no gross muscle atrophy], [no edema], [no contractures] Neuro: [ CN II-XI grossly intact], [no focal neuro deficits] Psych: [Alert], [oriented], [appropriate affect] A total of 35 minutes of time were spent preparing this complex discharge summary. Patient was discharged on 03/09/2024 Patient Condition at Discharge: Good Plan - Discharge Summary Discharge Rx Participant: Yes New Discharge Prescriptions: New Amoxicillin/Potassium Clav [Amox-Clav 875-125 mg Tablet] 1 tab PO BID 4 Days #8 tab Azithromycin [Zithromax] 250 mg PO DAILY 1 Days #1 tab Continue Chlorpheniramine Maleate [Chlor-Trimeton] 4 mg PO Q4H PRN PRN Reason: withdrawal symptoms cloNIDine HCL [Catapres] 0.1 - 0.3 mg PO Q4H PRN PRN Reason: bp greater than 160/100 Melatonin 10 mg PO HS traZODone HCL [Desyrel] 50 - 150 mg PO HS PRN PRN Reason: Insomnia Acetaminophen Tab [Tylenol] 650 mg PO Q4H PRN PRN Reason: Pain Or Fever > 100.5 allopurinoL 100 mg PO DAILY Apixaban [Eliquis] 5 mg PO BID Multivitamins, Thera [Multivitamin (formulary)] 1 tab PO DAILY Tamsulosin HCl [Flomax] 0.4 mg PO DAILY Thiamine [Vitamin B-1] 100 mg PO DAILY Atorvastatin [Lipitor] 10 mg PO HS Albuterol Nebulized [Ventolin Nebulized] 2.5 mg INHALATION RT-Q6H PRN PRN Reason: Shortness Of Breath Loperamide [Imodium] 4 mg PO QID PRN PRN Reason: Diarrhea ondansetron HCL [Zofran] 8 mg PO Q6H PRN PRN Reason: Nausea ARIPiprazole [Abilify] 10 mg PO DAILY Calcium Phos/D3/Magnesium/Zinc [Sziqacf-Gar-Hhrl-Vitamin D3] 1 tab PO TID PRN PRN Reason: Muscle cramps DULoxetine HCL [Cymbalta] 60 mg PO BID Folic Acid 1 mg PO DAILY Pregabalin [Lyrica] 150 mg PO TID Discharge Medication List ARIPiprazole [Abilify] 10 mg PO DAILY 03/06/24 [History] Acetaminophen Tab [Tylenol] 650 mg PO Q4H PRN 03/06/24 [History] Albuterol Nebulized [Ventolin Nebulized] 2.5 mg INHALATION RT-Q6H PRN 03/06/24 [History] Apixaban [Eliquis] 5 mg PO BID 03/06/24 [History] Atorvastatin [Lipitor] 10 mg PO HS 03/06/24 [History] Calcium Phos/D3/Magnesium/Zinc [Sodewmz-Idx-Qzbf-Vitamin D3] 1 tab PO TID PRN 03/06/24 [History] Chlorpheniramine Maleate [Chlor-Trimeton] 4 mg PO Q4H PRN 03/06/24 [History] DULoxetine HCL [Cymbalta] 60 mg PO BID 03/06/24 [History] Folic Acid 1 mg PO DAILY 03/06/24 [History] Loperamide [Imodium] 4 mg PO QID PRN 03/06/24 [History] Melatonin 10 mg PO HS 03/06/24 [History] Multivitamins, Thera [Multivitamin (formulary)] 1 tab PO DAILY 03/06/24 [History] Pregabalin [Lyrica] 150 mg PO TID 03/06/24 [History] Tamsulosin HCl [Flomax] 0.4 mg PO DAILY 03/06/24 [History] Thiamine [Vitamin B-1] 100 mg PO DAILY 03/06/24 [History] allopurinoL 100 mg PO DAILY 03/06/24 [History] cloNIDine HCL [Catapres] 0.1 - 0.3 mg PO Q4H PRN 03/06/24 [History] ondansetron HCL [Zofran] 8 mg PO Q6H PRN 03/06/24 [History] traZODone HCL [Desyrel] 50 - 150 mg PO HS PRN 03/06/24 [History] Amoxicillin/Potassium Clav [Amox-Clav 875-125 mg Tablet] 1 tab PO BID 4 Days #8 tab 03/09/24 [Rx] Azithromycin [Zithromax] 250 mg PO DAILY 1 Days #1 tab 03/09/24 [Rx] Follow up Appointment(s)/Referral(s): Nonstaff,Physician [Primary Care Provider] - 1-2 days Activity/Diet/Wound Care/Special Instructions: Set up cab for patient at discharge, hospital to pay: [phone]. Call [facility] with time of discharge [phone]. Discharge Disposition: HOME SELF-CARE
[2024-03-09 14:56] LABS: Basophils # (A) 0.07 X 10*3/uL (0.00-0.10); Basophils % (A) 0.9 %; Eosinophils # (A) 0.17 X 10*3/uL (0.04-0.35); Eosinophils % (A) 2.2 %; HCT 38.8 % (39.6-50.0); HGB 12.2 g/dL (13.0-17.0); Lymphocytes # (A) 1.57 X 10*3/uL (0.90-5.00); Lymphocytes % (A) 20.4 %; MCHC 31.4 g/dL (32.0-37.0); MCV 89.2 FL (80.0-97.0); Mean Platelet Volume 11.6 FL (9.5-12.2); Monocytes # (A) 0.83 X 10*3/uL (0.20-1.00); Monocytes % (A) 10.8 %; NRBC Per 100 WBC 0 X 10*3/uL (0.00-0.01); Neutrophils # (A) 5.05 X 10*3/uL (1.80-7.70); Neutrophils % (A) 65.6 %; Platelet Count 236 X 10*3/uL (140-440); RBC 4.35 X 10*6/uL (4.40-5.60); RDW 17.5 % (11.5-14.5)
[2024-03-09 15:19] VITALS: BP 104/63; PULSE 65
== END 2024-03-09 16:36 | disposition home or self-care (01) | DRG 871 ==
LOC: EC 11:56 → 4SSUR 15:30
PROVIDERS: ADMIT Family Medicine; ATTEND Family Medicine
DX: A41.9 Sepsis, unspecified organism (principal); J15.9 Unspecified bacterial pneumonia; J96.01 Acute respiratory failure with hypoxia; F14.10 Cocaine abuse, uncomplicated; F39 Unspecified mood [affective] disorder; F10.10 Alcohol abuse, uncomplicated; G62.9 Polyneuropathy, unspecified; Z86.718 Personal history of other venous thrombosis and embolism; Z79.01 Long term (current) use of anticoagulants; Z79.899 Other long term (current) drug therapy
CPT/HCPCS: 36415; 71046; 80048; 80053; 81003; 83605; 84145; 85025; 86140; 87040; 87070; 87205; 87449; 87636; 93005; 96361; 96365; 96366; 96375; 99285